=== PATIENT | female | born 1970 | race Caucasian/White ===

== ENCOUNTER 2018-08-27 19:30 | Emergency (ER) | payer OTHER ==
--- NOTE | 2018-08-27 22:11 | RADIOLOGY REPORT (SQ) ---
EXAM DESCRIPTION: XR KNEE 4 OR MORE VIEWS, XR KNEE 4 OR MORE VIEWS COMPLETED DATE/TME: 08/27/2018 21:28 (accession [id number]), 08/27/2018 21:15 (accession [id number]) CLINICAL HISTORY: 47 years, Female, pain COMPARISON: None. NUMBER OF VIEWS: 8 TECHNIQUE: Four views LEFT knee 10 three views of the RIGHT knee were obtained in AP, lateral and bilateral oblique projections. LIMITATIONS: None. FINDINGS: RIGHT knee: Mild degenerative changes are identified with sharpening of the tibial spines and tricompartmental osteophytes. There is no fracture or dislocation. The joint spaces are preserved. No soft tissue abnormalities are seen. Popliteal fossa fabella. LEFT knee: Mild degenerative changes are identified with sharpening of the tibial spines and tricompartmental osteophytes. There is no fracture or dislocation. The joint spaces are preserved. No soft tissue abnormalities are seen. Popliteal fossa fabella. IMPRESSION: Degenerative changes without acute radiographic abnormality. copyright 2010 [employer]- All Rights Reserved
--- NOTE | 2018-08-27 22:11 | RADIOLOGY REPORT (SQ) ---
EXAM DESCRIPTION: XR KNEE 4 OR MORE VIEWS, XR KNEE 4 OR MORE VIEWS COMPLETED DATE/TME: 08/27/2018 21:28 (accession [id number]), 08/27/2018 21:15 (accession [id number]) CLINICAL HISTORY: 47 years, Female, pain COMPARISON: None. NUMBER OF VIEWS: 8 TECHNIQUE: Four views LEFT knee 10 three views of the RIGHT knee were obtained in AP, lateral and bilateral oblique projections. LIMITATIONS: None. FINDINGS: RIGHT knee: Mild degenerative changes are identified with sharpening of the tibial spines and tricompartmental osteophytes. There is no fracture or dislocation. The joint spaces are preserved. No soft tissue abnormalities are seen. Popliteal fossa fabella. LEFT knee: Mild degenerative changes are identified with sharpening of the tibial spines and tricompartmental osteophytes. There is no fracture or dislocation. The joint spaces are preserved. No soft tissue abnormalities are seen. Popliteal fossa fabella. IMPRESSION: Degenerative changes without acute radiographic abnormality. copyright 2010 [employer]- All Rights Reserved
--- NOTE | 2018-08-27 22:18 | ER Document Report ---
HPI - HPI Time Seen by Provider: 08/27/18 21:53 Pain Level: Denies Context: Patient is a 47-year-old female who presents the emergency department with a chief complaint of left knee pain. She states that she fell about a month ago and injured her left knee. About 2 weeks ago she started feeling pain in both knees. She has been taking ibuprofen for her pain. Earlier today she felt a pop in her left knee and has had some difficulty walking, but is still able to w alk. - CONSTITUTIONAL Constitutional: DENIES: Fever, Chills - EENT EENT: DENIES: Sore Throat, Ear Pain - NEURO Neurology: DENIES: Headache - CARDIOVASCULAR Cardiovascular: DENIES: Chest pain - RESPIRATORY Respiratory: DENIES: Trouble Breathing, Coughing - REPRODUCTIVE Reproductive: DENIES: : - MUSCULOSKELETAL Musculoskeletal: REPORTS: Extremity pain - Bilateral knees, Swelling. DENIES: Back Pain - DERM Skin Color: Normal Skin Problems: None Past Medical History - General Information source: Patient - Social History Smoking Status: Unknown if Ever Smoked Family History: Reviewed & Not Pertinent - Past Medical History Cardiac Medical History: Reports: Hx Coronary Artery Disease - high chol , Hx Hypertension Denies: Hx Heart Attack Pulmonary Medical History: Denies: Hx Asthma, Hx Bronchitis, Hx COPD, Hx Pneumonia Neurological Medical History: Denies: Hx Cerebrovascular Accident, Hx Seizures Musculoskeletal Medical History: Denies Hx Arthritis Past Surgical History: Reports: Hx Cholecystectomy. Denies: Hx Hysterectomy - Immunizations Hx Diphtheria, Pertussis, Tetanus Vaccination: Yes Vertical Provider Document - CONSTITUTIONAL Agree With Documented VS: Yes Exam Limitations: No Limitations General Appearance: No Apparent Distress - INFECTION CONTROL TRAVEL OUTSIDE OF THE [place] IN LAST 30 DAYS: No - HEENT HEENT: Atraumatic, Normocephalic, PERRLA - NECK Neck: Normal Inspection - RESPIRATORY Respiratory: Breath Sounds Normal, No Respiratory Distress - CARDIOVASCULAR Cardiovascular: Regular Rate, Regular Rhythm Pulses: Normal: Posterior tibial, Dorsalis pedis - MUSCULOSKELETAL/EXTREMETIES Musculoskeletal/Extremeties: Tender - Behind left knee, No Edema - NEURO Level of Consciousness: Awake, Alert, Appropriate - DERM Integumentary: Warm, Dry, No Rash Course - Re-evaluation Re-evalutation: 08/27/18 22:18 Patient's knee x-ray showed degenerative changes. I discussed this with the patient. She will be following up with orthopedics and with her primary care provider. I have recommended that she gets a physical therapy referral. Since she is allergic to naproxen. She will be on ibuprofen and Tylenol for pain relief. She is in agreement with this plan. Verbal discharge instructions were given to the patient. They verbalized understanding. They are stable for discharge. - Vital Signs Vital signs: Temp Pulse Resp BP Pulse Ox 98.1 F 109 H 18 150/80 H 98 08/27/18 19:43 08/27/18 19:43 08/27/18 19:43 08/27/18 19:43 08/27/18 19:43 Discharge - Discharge Clinical Impression: Knee pain Qualifiers: Chronicity: acute Laterality: bilateral Qualified Code(s): M25.561 - Pain in right knee Condition: Stable Disposition: HOME, SELF-CARE Additional Instructions: You were seen today in the emergency department for left knee pain. Your x-rays on both sides show degenerative changes, consistent with arthritis. Please follow-up with your primary care provider. Please see physical therapy. You could follow-up with orthopedics as needed. Take ibuprofen 600 mg and acetaminophen 1000 mg every 6 hours as needed for your pain. If you are unable to walk, lose sensation in your legs, or have any symptoms that are worrisome to you, please return to the emergency department. Referrals: JUAN DIEGO CHOUDHURY MD [ACTIVE STAFF] - Follow up as needed
[2018-08-27] MEDS ORDERED: ACETAMINOPHEN 325 MG TABLET PO ONE (22:19)
[2018-08-27] MEDS ORDERED: IBUPROFEN 600 MG TABLET PO ONE (22:19)
[2018-08-27 22:54] VITALS: BP 142/74
== END 2018-08-27 22:53 | disposition home or self-care (01) ==
LOC: ER 19:30
DX: M25.562 Pain in left knee (principal); M25.561 Pain in right knee; I25.10 Atherosclerotic heart disease of native coronary artery without angina pectoris; I10 Essential (primary) hypertension; Z88.8 Allergy status to other drugs, medicaments and biological substances
CPT/HCPCS: 99283